=== PATIENT | female | born 1985 | race Caucasian/White ===

== ENCOUNTER 2017-02-27 13:03 | Inpatient (IN) | payer OTHER ==
[~2017-02-27] VITALS: Ht 154.9 cm; Wt 81.2 kg
[2017-03-04 12:10] VITALS: BP 127/74
[2017-03-04] MEDS ORDERED: RINGERS SOLUTION,LACTATED 1,000 ML IV PRN (13:35)
[2017-03-04] MEDS ORDERED: OXYTOCIN 30 UNITS/LACT RINGERS 500 ML IV ONE (13:35)
[2017-03-04] MEDS ORDERED: CITRIC ACID/SODIUM CITRATE 30 ML SOLUTION UDCUP PO PRN (13:45)
[2017-03-04] MEDS ORDERED: METHYLERGONOVINE MALEATE 0.2 MG/ML VIAL IM PRN (13:45)
[2017-03-04] MEDS ORDERED: INFLUENZA VIRUS VACCINE QVS 2017-18 (3YR+)/PF 60 MCG/0.5 ML SYRINGE IM ONE (13:45)
[2017-03-04] MEDS ORDERED: LIDOCAINE HCL/PF 1% 30 ML VIAL INJ PRN (13:45)
[2017-03-04] MEDS ORDERED: DINOPROSTONE 10 MG VAGINAL SUPPOSITORY VG ONE (13:45)
[2017-03-04] MEDS ORDERED: AMPICILLIN SODIUM 2 GM/NS 100 ML IV ONE (13:45)
[2017-03-04] MEDS ORDERED: METOCLOPRAMIDE HCL 5 MG/ML 2 ML VIAL IVP PRN (13:45)
[2017-03-04] MEDS ORDERED: PREN1TAB80 PO (13:47)
[2017-03-04 14:18] LABS: BASOPHILS % (AUTO) 0.3 % (0.0-2.0); EOSINOPHILS % (AUTO) 0.7 % (1.0-6.0); HEMATOCRIT 34.2 % (36-46); HEMOGLOBIN 11.7 g/dL (12.0-16.0); LYMPHOCYTES # (AUTO) 2.4 K/uL (1.0-4.8); LYMPHOCYTES % (AUTO) 25.4 % (22.0-44.0); MEAN CORPUSCULAR HEMOGLOBIN 30.1 pg (26.0-34.0); MEAN CORPUSCULAR HGB CONC 34.3 G/dL (31.0-37.0); MEAN CORPUSCULAR VOLUME 88 fL (80-100); MONOCYTES % (AUTO) 10.3 % (2.0-9.0); NEUTROPHILS % (AUTO) 63.3 % (40.0-70.0); PLATELET COUNT (AUTO)-OB 181 K/uL (150-450); RED CELL DISTRIBUTION WIDTH 14.2 % (11.5-14.5)
[2017-03-04] MEDS: RINGERS SOLUTION,LACTATED 1,000 ML IV SCH ×2 (14:39→22:06)
[2017-03-04] MEDS: FentaNYL CITRATE-PF 100 MCG/2 ML VIAL IVP PRN ×4 (17:48→21:00)
[2017-03-04] MEDS: AMPICILLIN SODIUM 1 GM/NS 50 ML IV SCH ×2 (18:33→22:45)
[2017-03-04] MEDS ORDERED: OXYGEN THERAPY IH SCH (20:00)
[2017-03-04] MEDS ORDERED: LIDOCAINE HCL 2%/EPI 1:200,000/PF 20 ML VIAL ONE (21:08)
[2017-03-04] MEDS ORDERED: ROPIVACAINE HCL 0.2% 100 ML ED ONE (21:08)
[2017-03-04] MEDS ORDERED: ROPIVACAINE HCL 0.2% 100 ML ED PRN (22:10)
[2017-03-05] MEDS ORDERED: -PHARMACY NOTE- MISC ONE (01:45)
[2017-03-05] MEDS: AMPICILLIN SODIUM 1 GM/NS 50 ML IV SCH ×3 (02:53→10:50)
[2017-03-05] MEDS ORDERED: OXYTOCIN 30 UNITS/LACT RINGERS 500 ML IV PRN (03:30)
[2017-03-05] MEDS ORDERED: ROPIVACAINE HCL 0.2% 100 ML ED ONE ×2 (03:53→09:08)
[2017-03-05] MEDS ORDERED: ONDANSETRON HCL 4 MG/2 ML VIAL IVP PRN (05:45)
[2017-03-05] MEDS ORDERED: LIDOCAINE HCL/PF 2% 5 ML VIAL ONE ×3 (05:57→08:00)
[2017-03-05] MEDS: RINGERS SOLUTION,LACTATED 1,000 ML IV SCH ×2 (06:57→16:58)
[2017-03-05] MEDS ORDERED: FentaNYL CITRATE-PF 100 MCG/2 ML VIAL ONE (08:01)
[2017-03-05] MEDS ORDERED: METHYLERGONOVINE MALEATE 0.2 MG/ML VIAL IM PRN (08:30)
[2017-03-05] MEDS ORDERED: LIDOCAINE HCL/PF 1% 30 ML VIAL INJ PRN (08:30)
[2017-03-05] MEDS ORDERED: LANOLIN 7 GM OINTMENT TP PRN (14:00)
[2017-03-05] MEDS ORDERED: ACETAMINOPHEN/CODEINE 300-30 MG TABLET PO PRN ×2 (14:00)
[2017-03-05] MEDS ORDERED: BENZOCAINE 20%/MENTHOL 56 GM SPRAY CANISTER TP PRN (14:00)
[2017-03-05] MEDS ORDERED: GLYCERIN/WITCH HAZEL LEAF 40 PADS JAR TP PRN (14:00)
[2017-03-05] MEDS: IBUPROFEN 800 MG TABLET PO SCH ×2 (15:37→21:24)
[2017-03-05] MEDS ORDERED: AMMONIA 1 EA AMP IH ONE (16:54)
[2017-03-05] MEDS: MAGNESIUM HYDROXIDE SUSPENSION 30 ML UDCUP PO SCH (21:23)
[2017-03-06] MEDS: IBUPROFEN 800 MG TABLET PO SCH ×2 (03:50→09:38)
[2017-03-06] MEDS: MAGNESIUM HYDROXIDE SUSPENSION 30 ML UDCUP PO SCH (08:12)
[2017-03-06] MEDS ORDERED: FERR-89 PO (09:14)
[2017-03-06] MEDS ORDERED: IBUP-2070 PO (09:14)
[2017-03-06] MEDS ORDERED: DSS100 PO (09:14)
== END 2017-03-06 14:45 | disposition home or self-care (01) | DRG 775 ==
LOC: 4S 03-04 11:45 → OBSVTOIN 03-04 13:40
PROVIDERS: ADMIT Obstetrics & Gynecology; ATTEND Obstetrics & Gynecology
PROC: 10D07Z6 Extraction of Products of Conception, Vacuum, Via Natural or Artificial Opening (ICD-10-PCS; principal; 2017-03-05)
PROC: 0W8NXZZ Division of Female Perineum, External Approach (ICD-10-PCS; 2017-03-05)
PROC: 3E0P7VZ Introduction of Hormone into Female Reproductive, Via Natural or Artificial Opening (ICD-10-PCS; 2017-03-05)
PROC: 3E0234Z Introduction of Serum, Toxoid and Vaccine into Muscle, Percutaneous Approach (ICD-10-PCS; 2017-03-05)
DX: O48.0 Post-term pregnancy (principal); O63.1 Prolonged second stage (of labor); O66.5 Attempted application of vacuum extractor and forceps; Z37.0 Single live birth; Z3A.41 41 weeks gestation of pregnancy; Z23 Encounter for immunization
CPT/HCPCS: 86850; 86900; 86901; 90471; J0290; J2590; J2765; J2795; J3010; J3490; J7120